=== PATIENT | male | born 1995 | race Caucasian/White ===

== ENCOUNTER 2017-03-09 20:00 | Inpatient (IN) | payer BC ==
--- NOTE | ~2017-03-09 | PN ---
Unit #: [id number] #: [id number] Patient: ABEL BLANCO [id number] [facility] [address] [place] [address] [id number] MR#: [id number] NAME: ABEL BLANCO ROOM: P211 Age: 22 Sex: M Admission Date: 03/10/2017 : 1995 Attending Physician: Sudheer Beckett M.D. Admitting Physician: Sudheer Beckett M.D. Primary Care Physician: Primary Care Physician Natalie ARVIZU PROGRESS NOTES DATE 03/11/2017 DISCUSSION The patient is a bit brighter today and is reporting reduced suicidal ideation. He is expressing interest in followup in his hometown of [place], [place], and should he sustain progress, discharge should take place as early as tomorrow. Dictated by... Sudheer Beckett M.D. CB/angel TD: 03/11/2017 14:06 JOB #: [id number] [facility] PROGRESS NOTES Page 1 of 1 X Sudheer Beckett MD X PROGRESS NOTE
--- NOTE | ~2017-03-09 | DS ---
Unit #: [id number] #: [id number] Patient: ABEL BLANCO [id number] [facility] [address] [place] [address] [id number] MR#: [id number] NAME: ABEL BLANCO ROOM: [facility] Age: 22 Sex: M Admission Date: 03/10/2017 : 1995 Discharge Date: 03/12/2017 Attending Physician: Sudheer Beckett M.D. Primary Care Physician: Primary Care Physician No DISCHARGE SUMMARY REASON FOR ADMISSION The patient is a 22-year-old single white male admitted to the [address] [place] [address] reporting positive suicidal ideation. HOSPITAL COURSE The patient was admitted to the [address] [place] [address] and placed on suicidal precautions. This physician to discuss possible initiation of antidepressant medication but the patient decline initiation of such medications. Attempts to transfer the patient to the [address] [place] [address] were unsuccessful. By 03/12 the patient was in brighter spirits and denied suicidal ideation he had also done so on 03/08/2017. He was agreeable with the plan for followup through the auspices of community mental health resources in the [facility] and discharge was ordered. FINAL DIAGNOSIS Major depressive disorder recurrent moderate. DISPOSITIOIN ON DISCHARGE The patient was discharged on no psychotropic or other medications. Followup to take place through the auspices of [facility] mental resources in the [facility]. The patient's prognosis is considered fair. Dictated by... Sudheer Beckett M.D. CB/skyler TD: 03/13/2017 03:02 JOB #: [id number] Unit #: [id number] #: [id number] Patient: ABEL BLANCO DISCHARGE SUMMARY Page 1 of 1 X Sudheer Beckett MD X DISCHARGE SUMMARY
--- NOTE | ~2017-03-09 | HP ---
Unit #: [id number] #: [id number] Patient: ABEL BLANCO [id number] [place] [address] [id number] MR#: [id number] NAME: ABEL BLANCO ROOM: P211 Age: 22 Sex: M Admission Date: 03/10/2017 : 1995 Attending Physician: Sudheer Beckett M.D. Admitting Physician: Sudheer Beckett M.D. Primary Care Physician: Primary Care Physician No HISTORY AND PHYSICAL HISTORY OF PRESENT ILLNESS The patient is a 22-year-old male admitted to [address] [place] [address] on 03/10/2017 for suicidal ideations. PAST MEDICAL HISTORY The patient denies. PAST SURGICAL HISTORY Pyloric sphincter repair as an infant. SOCIAL HISTORY He is unemployed. He lives with his parents. Denies alcohol, tobacco and drug use. FAMILY MEDICAL HISTORY Noncontributory. ALLERGIES Penicillin and Benadryl. CURRENT MEDICATIONS The patient is not on any home medications. REVIEW OF SYSTEMS CONSTITUTIONAL: No fever or chills. HEENT: Denies any sore throat, ear pain or runny nose. CARDIOVASCULAR: Denies chest pain, irregular heart rhythm or palpitations. CHEST: Denies shortness of breath or cough. No hemoptysis. GASTROINTESTINAL: Denies nausea, vomiting, diarrhea or chronic constipation. ENDOCRINE: Denies history of increased thirst or urination. No recent significant weight loss or gain. GENITOURINARY: Denies dysuria, frequency, or hematuria. SKIN: Denies any rashes. HEMATOLOGIC: Denies history of increased bleeding or bruising. MUSCULOSKELETAL: Denies any hot, swollen joints. No generalized muscle pain. NEUROLOGIC: Denies problems with vision or speech. No frequent, severe headaches. No numbness, tingling or weakness in any extremities. Denies loss of bladder or bowel control. PHYSICAL EXAM GENERAL: He is awake, alert and oriented in no acute distress. Unit #: [id number] #: [id number] Patient: ABEL BLANCO VITAL SIGNS: Temperature 98.4, heart rate 90, respiration 18, blood pressure 110/76. HEIGHT: 5'11". WEIGHT: 149 pounds. SKIN: Warm and dry without rash or lesion. HEENT: Normocephalic. TMs not viewed. Oral and nasal passages clear. Conjunctivae clear. PERRLA. EOMs intact. NECK: Supple without lymphadenopathy or thyromegaly. HEART: Regular rate and rhythm without murmur. LUNGS: Clear. ABDOMEN: Soft, nontender. : Not done. EXTREMITIES: No evidence of cyanosis, clubbing or edema. Moves all without focal deficit. NEUROLOGICAL: Grossly within normal limits. Cranial Nerves: II: Visual parekh are intact. III, IV AND : Extraocular movements are intact. Pupils are equal, round and reactive to light. V: Facial sensation is grossly normal. VII: Facial movements and expression are normal. VIII: Auditory acuity grossly intact. IX, X: Uvula is midline. Phonation is normal. XI: Patient shrugs shoulders and turns head normally. XII: Tongue protrudes in the midline. Sensory and Motor Function: Sensory and motor sensation is grossly normal. Motor: moves all extremities well. IMPRESSION Psychiatric admission. RECOMMENDATIONS Psychiatric per psychiatrist. MEDICAL: No contraindication to participate in facility activities. MEDICAL PROGNOSIS Good. MEDICAL CONDITION Stable. Dictated by... Jocelyn Boone/skyler TD: 03/11/2017 05:16 JOB #: [id number] Unit #: [id number] #: [id number] Patient: ABEL BLANCO HISTORY AND PHYSICAL Page 1 of 1 X JOSE LEY APRN X HISTORY AND PHYSICAL
--- NOTE | ~2017-03-09 | PA ---
Unit #: [id number] #: [id number] Patient: ABEL BLANCO [id number] [facility] [address] [place] [address] [id number] MR#: [id number] NAME: ABEL BLANCO ROOM: [facility] Age: 22 Sex: M Admission Date: 03/10/2017 : 1995 Date of Assessment: 03/10/2017 Attending Physician: Sudheer Beckett M.D. Admitting Physician: Sudheer Beckett M.D. Primary Care Physician: Primary Care Physician No PSYCHIATRIC ASSESSMENT IDENTIFYING INFORMATION The patient is a 22-year-old white male admitted to the [address] [place] [address] with increasing thoughts of suicide. CHIEF COMPLAINT None given. INFORMANT(S) The patient RELIABILITY The patient's reliability is fair. HISTORY OF PRESENT ILLNESS The patient is a 22-year-old single white male admitted to the [address] [place] [address] after he presented to this facility while seen positive suicidal ideation. The patient reports that he had planned to go and purchase a firearm. The patient reports no specific stressors though he did quit his job at [employer] in October and reports that this was the source of some stress. He reports less than optimal support from his father and stepfather as other stressors. He was hospitalized at this facility at the age of 9 and diagnosed with oppositional defiant disorder and posttraumatic stress disorder. The patient does not wish to begin antidepressant medication at this time. He denies recent changes in sleep or appetite. He denies abuse of psychoactive substances at this time. He is a high school graduate. PAST PSYCHIATRIC HISTORY As above. PAST MEDICAL HISTORY Noncontributory. MEDICATIONS None. ALLERGIES None. FAMILY HISTORY The patient denies family history of psychiatric illness. SOCIAL HISTORY Unit #: [id number] #: [id number] Patient: ABEL BLANCO The patient lives with his mother and father. He has a high school degree. He is presently unemployed. He denies use of any psychoactive substances. MENTAL STATUS EXAMINATION At this time reveals the patient to be a thin white male appearing his stated age. He is in no apparent physical distress at the time of examination. He is awake, alert, and oriented in all spheres. His mood is mildly dysphoric. His affect constricted. Speech is generally relevant and coherent. There are no gross deficits in memory or cognition noted. Intelligence is judged to be in the average range based on fund of knowledge. The patient is cooperative throughout the interview. He is currently endorsing positive suicidal ideation. He denies homicidal ideation. He denies any psychotic symptoms. His judgment and insight appear to be intact. ASSETS AND LIABILITIES ASSETS: Motivation for change. LIABILITIES: Lack of resources. DIAGNOSTIC IMPRESSION 1. Dysthymic disorder. 2. PTSD by history. TREATMENT PLAN The patient remains hospitalized for safety and stabilization. At this time the patient declines initiation of antidepressant medication after discussion of the risks and benefits of such medication. He will transfer to the [address] [place] [address] unit and looks to be a good candidate for possible participation in the intensive outpatient program. I will again discuss with the patient possible initiation of medication as of tomorrow. ESTIMATED LENGTH OF STAY Five days. Dictated by... Sudheer Beckett M.D. YA/skyler TD: 03/11/2017 01:47 JOB #: [id number] PSYCHIATRIC ASSESSMENT Page 1 of 1 X Sudheer Beckett MD X PSYCHIATRIC ASSESSMENT
[~2017-03-09 20:00] MED LIST: DIFLUCAN PO; ZOVIRAX800 MG PO
[2017-03-10 11:31] LABS: BASOPHIL% 0.9 % (0-2.5); EOSINOPHIL# 0.3 X10e3 (0-0.7); HEMATOCRIT 41.6 % (38.0-50.0); HEMOGLOBIN 14.2 gm/dL (13.0-16.0); LYMPHOCYTE# 2.7 X10e3 (1.0-3.5); MEAN CELL VOLUME 92.5 FL (83-96); MEAN CORPUSCULAR HEMOGLOBIN 31.5 PG (28-34); MEAN PLATELET VOLUME 9.7 FL (6.5-11.5); MONOCYTE# 0.3 X10e3 (0-1.0); MONOCYTE% 6.1 % (3.0-12.0); NEUTROPHIL# 2.3 X10e3 (1.5-7.1); PLATELET COUNT 155 X10e3 (140-420); RED CELL DISTRIBUTION WIDTH 13.2 % (11.0-15.5); WHITE BLOOD COUNT 5.7 X10e3 (4.0-10.5)
[2017-03-10 11:33] LABS: DIFF IND NO
[2017-03-10 11:50] LABS: ALBUMIN SERUM 4.2 g/dL (3.5-5.0); BILIRUBIN,TOTAL 0.8 mg/dL (0.2-2.0); BUN/CREATININE RATIO 22.85; CALCIUM SERUM 9.3 mg/dL (8.4-10.2); CREATININE SERUM 0.7 mg/dL (0.6-1.4); GLOM FILT RATE Estimated 132.1 mL/min (>60); POTASSIUM 4.2 mmol/L (3.5-5.1)
[2017-03-11 09:51] LABS: URINE APPEARANCE CLEAR; URINE BILIRUBIN NEG (NEG); URINE BLOOD NEG (NEG); URINE COLOR YELLOW; URINE GLUCOSE NEG (NEG); URINE KETONE NEG (NEG); URINE LEUKOCYTE ESTERASE NEG (NEG); URINE NITRATE NEG (NEG); URINE PROTEIN NEG (NEG); URINE SPECIFIC GRAVITY 1.013 (1.003-1.035); URINE UROBILINOGEN 0.2 MG/DL (NEG)
[2017-03-11 10:09] LABS: AMPHETAMINE NEG (NEG); BARBITURATES NEG (NEG); BENZODIAZEPINES NEG (NEG); COCAINE NEG (NEG); MARIJUANA POS (NEG); OPIATES NEG (NEG); TRICYCLIC ANTIDEPRESSANTS NEG (NEG); U METHADONE NEG (NEG)
== END 2017-03-12 16:35 | disposition home or self-care (01) | DRG 885 ==
LOC: P2S 03-10 01:51
PROVIDERS: Specialist
DX: F33.1 Major depressive disorder, recurrent, moderate (principal); R45.851 Suicidal ideations; Z88.0 Allergy status to penicillin; F43.10 Post-traumatic stress disorder, unspecified
CPT/HCPCS: 80053; 80307; 81003; 85025